=== PATIENT | female | born 1945 | race Asian ===

== ENCOUNTER 2019-01-19 11:25 | Inpatient (IN) | payer MEDICARE, OTHER ==
[2019-01-19] MEDS ORDERED: METHOCARBAMOL 500 MG TAB PO (12:30)
[2019-01-19] MEDS ORDERED: BISACODYL 10 MG SUPP PR (12:30)
[2019-01-19] MEDS ORDERED: PENDING SANTYL ORDER FOR WOUND CARE XX (12:30)
[2019-01-19] MEDS ORDERED: CALCIUM CARBONATE 1.25 GM TAB PO (13:00)
[2019-01-19 16:25] LABS: ADD UMIC NO; UR ASCORBIC ACID NEGATIVE (NEGATIVE); UR BILIRUBIN (Dip) NEGATIVE (NEGATIVE); UR BLOOD (Dip) NEGATIVE (NEGATIVE); UR CLARITY CLEAR (CLEAR); UR COLOR YELLOW (YELLOW); UR GLUCOSE (Dip) NEGATIVE (NEGATIVE); UR KETONES (Dip) NEGATIVE (NEGATIVE); UR LEUKOCYTE ESTERASE (Dip) NEGATIVE Leu/ul (NEGATIVE); UR NITRITE (Dip) NEGATIVE (NEGATIVE); UR SPECIFIC GRAVITY (Dip) 1.014 (1.003-1.030); UR TOTAL PROTEIN (Dip) NEGATIVE (NEGATIVE); UR UROBILINOGEN (Dip) NEGATIVE (NEGATIVE)
[2019-01-19] MEDS: ACETAMINOPHEN 325 MG TAB PO (19:38)
[2019-01-19] MEDS: SENNA TAB PO (21:00)
[2019-01-19] MEDS: HYDROCODONE/APAP (5/325) TAB PO (22:15)
[2019-01-19] MEDS: DOCUSATE SODIUM 100 MG CAP PO (22:16)
[2019-01-19] MEDS: ALPRAZOLAM 1 MG TAB PO (23:28)
[2019-01-20] MEDS: PANTOPRAZOLE (EC) 40 MG TAB PO (07:21)
[2019-01-20 07:29] LABS: ADD MAN DIFF? NO
[2019-01-20 07:39] LABS: WHITE BLOOD COUNT 12.2 10^3/ul (4.8-10.8)
[2019-01-20 07:39] LABS: BASOPHILS % 0.2 % (0.0-2.0); EOSINOPHILS # 0.2 10^3/ul (0.0-0.5); EOSINOPHILS % 1.7 % (0.0-7.0); HEMATOCRIT 31.3 % (37.0-47.0); HEMOGLOBIN 10.2 g/dl (12.0-16.0); LYMPHOCYTES % 16.4 % (15.0-51.0); MEAN CORPUSCULAR HEMOGLOBIN 30.8 pg (29.0-33.0); MEAN CORPUSCULAR HGB CONC 32.6 g/dl (32.0-37.0); MEAN CORPUSCULAR VOLUME 94.6 fl (82.0-101.0); MEAN PLATELET VOLUME 10.4 fl (7.4-10.4); MONOCYTE # 0.6 10^3/ul (0.3-0.9); MONOCYTES % 4.7 % (0.0-11.0); NEUTROPHIL # 9.3 10^3/ul (1.6-7.5); NEUTROPHILS % 76.5 % (39.0-77.0); PLATELET COUNT 161 10^3/UL (140-415); RED BLOOD COUNT 3.31 10^6/ul (4.20-5.40); RED CELL DISTRIBUTION WIDTH 13.3 % (11.5-14.5)
[2019-01-20 07:56] LABS: ALANINE AMINOTRANSFERASE 23 IU/L (13-69); ALBUMIN 2.8 g/dl (3.3-4.9); ALBUMIN/GLOBULIN RATIO 1.03; ALKALINE PHOSPHATASE 74 IU/L (42-121); ANION GAP 6 (5-13); ASPARTATE AMINO TRANSFERASE 36 IU/L (15-46); BILIRUBIN,INDIRECT 0.6 mg/dl (0-1.1); BILIRUBIN,TOTAL 0.6 mg/dl (0.2-1.3); BLOOD UREA NITROGEN 13 mg/dl (7-20); CALCIUM 8.6 mg/dl (8.4-10.2); CARBON DIOXIDE 26 mmol/L (21-31); CHLORIDE 108 mmol/L (97-110); CREATININE 0.67 mg/dl (0.44-1.00); GLUCOSE 98 mg/dl (70-220); POTASSIUM 4.5 mmol/L (3.5-5.1); SODIUM 140 mmol/L (135-144); TOTAL PROTEIN 5.5 g/dl (6.1-8.1)
[2019-01-20] MEDS: HYDROCODONE/APAP (5/325) TAB PO ×2 (08:59→23:07)
[2019-01-20] MEDS: ASPIRIN (EC) 325 MG TAB PO (08:59)
[2019-01-20] MEDS: CALCIUM CARBONATE 1.25 GM TAB PO (09:01)
[2019-01-20] MEDS: CHOLECALCIFEROL 400 UNITS TAB PO (09:01)
[2019-01-20] MEDS: DOCUSATE SODIUM 100 MG CAP PO ×2 (09:01→21:00)
[2019-01-20] MEDS: MULTIVITAMINS THERAPEUTIC TAB PO (09:01)
[2019-01-20] MEDS: ACETAMINOPHEN 325 MG TAB PO (17:43)
[2019-01-20] MEDS: SENNA TAB PO (21:00)
[2019-01-20] MEDS: ALPRAZOLAM 1 MG TAB PO (23:30)
[2019-01-21] MEDS: ACETAMINOPHEN 325 MG TAB PO ×6 (04:00→20:00)
[2019-01-21] MEDS: PANTOPRAZOLE (EC) 40 MG TAB PO (08:40)
[2019-01-21] MEDS: CHOLECALCIFEROL 400 UNITS TAB PO (08:41)
[2019-01-21] MEDS: HYDROCODONE/APAP (5/325) TAB PO ×2 (08:41→20:54)
[2019-01-21] MEDS: ASPIRIN (EC) 325 MG TAB PO (08:41)
[2019-01-21] MEDS: DOCUSATE SODIUM 100 MG CAP PO ×2 (08:41→21:00)
[2019-01-21] MEDS: MULTIVITAMINS THERAPEUTIC TAB PO (08:41)
[2019-01-21] MEDS: CALCIUM CARBONATE 1.25 GM TAB PO (08:41)
[2019-01-21] MEDS: LACTULOSE 30ML CUP PO (09:07)
[2019-01-21] MEDS: SENNA TAB PO (21:00)
[2019-01-22] MEDS: ACETAMINOPHEN 325 MG TAB PO ×6 (04:00→21:58)
[2019-01-22] MEDS: CALCIUM CARBONATE 1.25 GM TAB PO (08:20)
[2019-01-22] MEDS: MULTIVITAMINS THERAPEUTIC TAB PO (08:20)
[2019-01-22] MEDS: ASPIRIN (EC) 325 MG TAB PO (08:20)
[2019-01-22] MEDS: PANTOPRAZOLE (EC) 40 MG TAB PO (08:20)
[2019-01-22] MEDS: CHOLECALCIFEROL 400 UNITS TAB PO (08:21)
[2019-01-22] MEDS: DOCUSATE SODIUM 100 MG CAP PO ×2 (08:21→21:00)
[2019-01-22] MEDS: HYDROCODONE/APAP (5/325) TAB PO (19:31)
[2019-01-22] MEDS: BACLOFEN 10 MG TAB PO (20:54)
[2019-01-22] MEDS: SENNA TAB PO (21:00)
[2019-01-23] MEDS: ACETAMINOPHEN 325 MG TAB PO ×6 (04:00→20:50)
[2019-01-23] MEDS: PANTOPRAZOLE (EC) 40 MG TAB PO (07:59)
[2019-01-23] MEDS: CALCIUM CARBONATE 1.25 GM TAB PO (08:21)
[2019-01-23] MEDS: CHOLECALCIFEROL 400 UNITS TAB PO (08:21)
[2019-01-23] MEDS: ASPIRIN (EC) 325 MG TAB PO (08:21)
[2019-01-23] MEDS: MULTIVITAMINS THERAPEUTIC TAB PO (08:21)
[2019-01-23] MEDS: DOCUSATE SODIUM 100 MG CAP PO ×2 (08:22→20:50)
[2019-01-23] MEDS ORDERED: METHOCARBAMOL 500 MG TAB PO (10:30)
[2019-01-23] MEDS: SENNA TAB PO (20:50)
[2019-01-24] MEDS: ACETAMINOPHEN 325 MG TAB PO ×6 (00:46→20:00)
[2019-01-24] MEDS: PANTOPRAZOLE (EC) 40 MG TAB PO (06:34)
[2019-01-24] MEDS: MULTIVITAMINS THERAPEUTIC TAB PO (08:10)
[2019-01-24] MEDS: ASPIRIN (EC) 325 MG TAB PO (08:10)
[2019-01-24] MEDS: CHOLECALCIFEROL 400 UNITS TAB PO (08:10)
[2019-01-24] MEDS: CALCIUM CARBONATE 1.25 GM TAB PO (08:10)
[2019-01-24] MEDS: HYDROCODONE/APAP (5/325) TAB PO (08:11)
[2019-01-24] MEDS: DOCUSATE SODIUM 100 MG CAP PO ×2 (09:00→21:00)
[2019-01-24] MEDS ORDERED: OXYCODONE/ACETAMINOPHEN (5/325) TAB PO (12:00)
[2019-01-24] MEDS: OXYCODONE/ACETAMINOPHEN (5/325) TAB PO ×3 (12:02→23:48)
[2019-01-24] MEDS: SENNA TAB PO (21:00)
[2019-01-25] MEDS: ACETAMINOPHEN 325 MG TAB PO ×6 (04:00→20:00)
[2019-01-25] MEDS: CHOLECALCIFEROL 400 UNITS TAB PO (08:58)
[2019-01-25] MEDS: MULTIVITAMINS THERAPEUTIC TAB PO (08:58)
[2019-01-25] MEDS: ASPIRIN (EC) 325 MG TAB PO (08:58)
[2019-01-25] MEDS: CALCIUM CARBONATE 1.25 GM TAB PO (08:58)
[2019-01-25] MEDS: PANTOPRAZOLE (EC) 40 MG TAB PO (08:58)
[2019-01-25] MEDS: DOCUSATE SODIUM 100 MG CAP PO ×2 (08:58→20:18)
[2019-01-25] MEDS: OXYCODONE/ACETAMINOPHEN (5/325) TAB PO ×2 (16:56→21:00)
[2019-01-25] MEDS: SENNA TAB PO (20:18)
[2019-01-26] MEDS: ACETAMINOPHEN 325 MG TAB PO ×6 (04:00→20:00)
[2019-01-26] MEDS: PANTOPRAZOLE (EC) 40 MG TAB PO (08:39)
[2019-01-26] MEDS: ASPIRIN (EC) 325 MG TAB PO (08:57)
[2019-01-26] MEDS: MULTIVITAMINS THERAPEUTIC TAB PO (08:57)
[2019-01-26] MEDS: MAGNESIUM HYDROXIDE 30ML CUP PO ×2 (08:57→20:07)
[2019-01-26] MEDS: CHOLECALCIFEROL 400 UNITS TAB PO (08:57)
[2019-01-26] MEDS: CALCIUM CARBONATE 1.25 GM TAB PO (08:57)
[2019-01-26] MEDS: DOCUSATE SODIUM 100 MG CAP PO ×2 (09:00→20:12)
[2019-01-26] MEDS: OXYCODONE/ACETAMINOPHEN (5/325) TAB PO (20:08)
[2019-01-26] MEDS: SENNA TAB PO (20:12)
[2019-01-26] MEDS: ALPRAZOLAM 1 MG TAB PO (20:58)
[2019-01-27] MEDS: ACETAMINOPHEN 325 MG TAB PO ×7 (04:00→20:00)
[2019-01-27] MEDS: PANTOPRAZOLE (EC) 40 MG TAB PO (09:38)
[2019-01-27] MEDS: MULTIVITAMINS THERAPEUTIC TAB PO (09:39)
[2019-01-27] MEDS: ASPIRIN (EC) 325 MG TAB PO (09:39)
[2019-01-27] MEDS: CHOLECALCIFEROL 400 UNITS TAB PO (09:39)
[2019-01-27] MEDS: DOCUSATE SODIUM 100 MG CAP PO ×2 (09:39→20:45)
[2019-01-27] MEDS: CALCIUM CARBONATE 1.25 GM TAB PO (09:39)
[2019-01-27] MEDS: OXYCODONE/ACETAMINOPHEN (5/325) TAB PO ×2 (12:39→20:48)
[2019-01-27] MEDS: SENNA TAB PO (20:45)
[2019-01-27] MEDS: ALPRAZOLAM 1 MG TAB PO (20:48)
[2019-01-28] MEDS: ACETAMINOPHEN 325 MG TAB PO ×3 (04:00→07:55)
[2019-01-28] MEDS: PANTOPRAZOLE (EC) 40 MG TAB PO (07:54)
[2019-01-28] MEDS: MULTIVITAMINS THERAPEUTIC TAB PO (08:56)
[2019-01-28] MEDS: ASPIRIN (EC) 325 MG TAB PO (08:56)
[2019-01-28] MEDS: CHOLECALCIFEROL 400 UNITS TAB PO (08:56)
[2019-01-28] MEDS: DOCUSATE SODIUM 100 MG CAP PO (08:56)
[2019-01-28] MEDS: CALCIUM CARBONATE 1.25 GM TAB PO (08:56)
[2019-01-28] MEDS: OXYCODONE/ACETAMINOPHEN (5/325) TAB PO (09:01)
== END 2019-01-28 10:07 | disposition home health service (06) | DRG 948 ==
LOC: VRC 11:25
DX: G89.18 Other acute postprocedural pain (principal); D50.0 Iron deficiency anemia secondary to blood loss (chronic); F41.9 Anxiety disorder, unspecified; G62.89 Other specified polyneuropathies; Z98.890 Other specified postprocedural states; Z85.3 Personal history of malignant neoplasm of breast; K21.9 Gastro-esophageal reflux disease without esophagitis; I95.9 Hypotension, unspecified
CPT/HCPCS: 80053; 81003; 85025; 87081; 87086; 97110; 97112; 97116; 97162; 97530; 97535